=== PATIENT | male | born 1995 | race Caucasian/White ===

== ENCOUNTER 2017-10-14 22:28 | Emergency (ER) | payer OTHER ==
[2017-10-14 22:35] VITALS: BP 129/67; PULSE 64; RESP 20; TEMP 98.3; O2SAT 98
[2017-10-14] MEDS ORDERED: Silver Sulfadiazine 1% Cream (20 gm) TOP STA (22:37)
[2017-10-14] MEDS ORDERED: Silver Sulfadiazine 1% Cream (20 gm) ONE (22:56)
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
== END 2017-10-14 23:10 | disposition home or self-care (01) ==
LOC: C.ER 22:28
DX: T23.262A Burn of second degree of back of left hand, initial encounter (principal); X10.2XXA Contact with fats and cooking oils, initial encounter; Y93.G3 Activity, cooking and baking; Y92.89 Other specified places as the place of occurrence of the external cause